=== PATIENT | male | born 1975 | race Caucasian/White ===

== ENCOUNTER 2021-01-20 18:50 | Emergency (ER) | payer SELFPAY ==
[~2021-01-20] VITALS: Ht 182.9 cm; Wt 77.1 kg
[2021-01-20] MEDS ORDERED: ONDA4ODT MM (19:30)
== END 2021-01-20 19:46 | disposition home or self-care (01) ==
LOC: ER 18:50
DX: U07.1 COVID-19 (principal); R11.0 Nausea
CPT/HCPCS: 99282